=== PATIENT | female | born 1940 | race Caucasian/White ===

== ENCOUNTER 2017-10-24 10:20 | Outpatient (CLI) | payer MEDICARE, BC ==
[2017-10-24] MEDS ORDERED: IOPAMIDOL-300 50 ML VIAL ONE (10:39)
[2017-10-24] MEDS ORDERED: IOPAMIDOL-300 100 ML VIAL ONE (10:39)
[2017-10-24] MEDS: IOPAMIDOL-300 100 ML VIAL IVP ONE (11:57)
[2017-10-24] MEDS: IOPAMIDOL-300 50 ML VIAL PO ONE (11:57)
--- NOTE | 2017-10-24 13:38 | CT Report ---
Procedure Date: 10/24/2017 Accession Number: [id number] / [id number] Procedure: CT - Abdomen/Pelvis W/ CPT Code: FULL RESULT: EXAM: Chest W/, Abdomen/Pelvis W/ DATE: 10/24/2017 11:54 AM CLINICAL HISTORY: LYMPHOMA, UNSPECIFIED BODY REGION, NIGHT SWEATS COMPARISON: None. TECHNIQUE: Routine helical CT imaging was performed through from the thoracic inlet to the pubic symphysis. IV contrast: 100 mL Isovue 300 Reconstructions: Coronal and sagittal. Coronal 20 mm maximum intensity projections were also obtained for the chest. In accordance with CT protocol optimization, one or more of the following dose reduction techniques were utilized for this exam: automated exposure control, adjustment of mA and/or KV based on patient size, or use of iterative reconstructive technique. FINDINGS: CHEST: Lungs/Pleura: No nodules, bronchial thickening, consolidation, or edema. Pulmonary vasculature is normal. No pericardial or pleural effusion. No pneumothorax. Mediastinum: Normal. No adenopathy or masses. Note is made of coronary calcifications and calcifications of the great vessels. Bones: Unremarkable. ABDOMEN AND PELVIS: Liver: Normal. No masses. Gallbladder/Bile Ducts: Unremarkable. Spleen: 15.6 x 6.8 x 14.9 cm, marked splenomegaly. Subcentimeter splenic hypodensities, too small to characterize. Additional 1.7 x 1.4 x 0.8 cm hypodense splenic lesion, subtle ill-defined borders. Pancreas: Normal in size and shape, featureless with prominent duct. Adrenal Glands: Normal. Kidneys: Normal. No masses or hydronephrosis. Peritoneal Cavity/Bowel: Normal. No free fluid, free air or adenopathy. No masses or acute inflammatory process. The appendix is well visualized and normal. Pelvic Organs: Normal. The bladder and visualized pelvic organs are within normal limits. Vasculature: Abdominal atherosclerotic disease without aneurysm. Bones: No significant abnormality. Other: None. IMPRESSION: Splenomegaly with questionable splenic lesions, concerning in the clinical setting of suspected lymphoma. Relatively featureless pancreas without overt enlargement; a nonspecific finding that can be seen with autoimmune pancreatitis. No evidence of metastatic disease in the chest or pelvis. Atherosclerotic disease in the chest and abdomen. RADIA
== END 2017-10-24 10:21 | disposition home or self-care (01) ==
LOC: DI 10:20
PROVIDERS: ATTEND Family Medicine
DX: C85.90 Non-Hodgkin lymphoma, unspecified, unspecified site (principal); D73.89 Other diseases of spleen; R16.1 Splenomegaly, not elsewhere classified; I70.90 Unspecified atherosclerosis
CPT/HCPCS: 71260; 74177; Q9967

== ENCOUNTER 2017-12-30 08:28 | Day surgery (SDC) | payer MEDICARE, BC ==
[~2017-12-30 08:28] MED LIST: ceFAZolin 2 GM/50 ML 2 GM/50 ML BAG IV ONE
--- NOTE | 2017-12-30 08:56 | ANESTHESIA ---
Pre-Anesthesia VS, & Labs - Diagnosis mantle cell cancer - Procedure portacath placement Vital Signs: Temp Pulse Resp BP Pulse Ox 36.6 C 73 16 170/64 H 98 12/30/17 08:49 12/30/17 08:49 12/30/17 08:49 12/30/17 08:49 12/30/17 08:49 Height 5 ft 2 in Weight (kg) 63 kg - NPO >8 hours - Is Patient ?: Not Applicable - Lab Results Lab results reviewed: Yes Home Medications and Allergies Home Medications: Ambulatory Orders Medication Instructions Recorded Confirmed Loratadine [Claritin] 10 mg PO DAILY 09/05/15 12/29/17 Candesartan Cilexetil 16 mg PO DAILY PM 12/26/17 12/29/17 LORazepam [Lorazepam] 0.5 mg PO Q6H PRN 12/26/17 12/29/17 Lidocaine/Prilocain 2.5% Cream 30 gm TOP 1-2XD PRN #1 tube 12/26/17 12/29/17 [Emla 2.5% Cream] Ondansetron [Ondansetron Odt] 8 mg PO Q8H PRN #30 tab.rapdis 12/26/17 12/29/17 Prochlorperazine Maleate 10 mg PO Q6H PRN #30 tablet 12/26/17 12/29/17 [Compazine] raNITIdine [Zantac] 2 tab PO DAILY 12/26/17 12/29/17 Allopurinol 200 mg PO DAILY 5 Days #10 tablet 12/29/17 12/29/17 Loratadine [Claritin] 10 mg PO DAILY 09/05/15 Candesartan Cilexetil 16 mg PO DAILY PM 12/26/17 LORazepam [Lorazepam] 0.5 mg PO Q6H PRN 12/26/17 raNITIdine [Zantac] 2 tab PO DAILY 12/26/17 Allergies/Adverse Reactions: Allergies Allergy/AdvReac Type Severity Reaction Status Date / Time amoxicillin Allergy Unknown Verified 12/29/17 13:24 ampicillin Allergy Hives Verified 12/29/17 10:44 atenolol Allergy Unknown Verified 12/29/17 13:24 atorvastatin [From Lipitor] Allergy Unknown Verified 12/29/17 13:24 benazepril Allergy Unknown Verified 12/29/17 13:24 calcitonin [From Miacalcin] Allergy Unknown Verified 12/29/17 13:24 felodipine Allergy Unknown Verified 12/29/17 13:24 hydrochlorothiazide Allergy Unknown Verified 12/29/17 13:24 pravastatin Allergy Unknown Verified 12/29/17 13:24 rosuvastatin [From Crestor] Allergy Unknown Verified 12/29/17 13:24 simvastatin Allergy Unknown Verified 12/29/17 13:24 Anes History & Medical History - Anesthetic History Anesthesia Complications: reports: No previous complications Family history of Anesthesia Complications: Denies Family history of Malignant Hyperthermia: Denies - Medical History Cardiovascular: reports: Hypertension, High cholesterol Pulmonary: reports: None Gastrointestinal: reports: GERD Urinary: reports: None Musculoskeletal: reports: Osteoarthritis Endocrine/Autoimmune: reports: None Skin: reports: None - Surgical History Eyes Ears Nose Throat (EENT): Cataracts, Tonsil/Adenoidectomy Gynecologic: Hysterectomy Exam General: Alert, Oriented x3, Cooperative, No acute distress Dental: Other (caps, bridge) Mouth Openin Fingerbreadth Neck Mobility: Reduced Mallampati classification: II Thyromental Distance: greater than 6 cm Respiratory: Lungs clear, Normal breath sounds, No respiratory distress, No accessory muscle use Cardiovascular: Normal S1, Other (murmur) Mental/Cognitive Status: Alert/Oriented X3, Normal for patient Cognitive Status: Within normal limits Plan Anesthesia Type: General, MAC Consent for Procedure(s) Verified and Reviewed: Yes Code Status: Attempt Resuscitation ASA classification: 3-Severe systemic disease (she has cancer) Is this case an emergency?: No
[2017-12-30] MEDS ORDERED: LACTATED RINGERS 1,000 ML IV ONE ×2 (09:11→11:23)
[2017-12-30] MEDS ORDERED: BUPIVACAINE 0.5% PF 30 ML VIAL ONE (09:16)
[2017-12-30] MEDS ORDERED: PROPOFOL 200 MG/20 ML VIAL IVP ONE (11:00)
[2017-12-30] MEDS ORDERED: fentaNYL 100 MCG/2 ML VIAL IVP ONE (11:00)
[2017-12-30] MEDS ORDERED: MIDAZOLAM 2 MG/2 ML VIAL IVP ONE (11:00)
[2017-12-30] MEDS ORDERED: ONDANSETRON 4 MG/2 ML VIAL IVP ONE (11:00)
[2017-12-30] MEDS ORDERED: KETOROLAC 30 MG/ML VIAL IVP ONE (11:00)
[2017-12-30] MEDS ORDERED: LIDOCAINE-MPF 2% 5 ML VIAL IM ONE (11:00)
[2017-12-30] MEDS ORDERED: ePHEDrine 50 MG/ML AMP IVP ONE (11:00)
[2017-12-30] MEDS ORDERED: BUPIVACAINE 0.5% PF 30 ML VIAL SUBQ ONE ×2 (11:02)
[2017-12-30] MEDS ORDERED: HYDROcod/ACETAM 5/325 MG TABLET PO PRN (11:37)
[2017-12-30] MEDS ORDERED: ONDANSETRON 4 MG/2 ML VIAL IVP PRN (11:37)
[2017-12-30] MEDS ORDERED: HYDROmorphone 0.5 MG/0.5 ML SYRINGE IVP PRN (11:37)
--- NOTE | 2017-12-30 11:37 | OPERATIVE REPORT ---
Operative Report - General Procedure Date: 12/30/17 Planned Procedure: Port-A-Cath placement Pre-Op Diagnosis: Mantle cell lymphoma Procedure Performed: Left subclavian Port-A-Cath placement Post Op Diagnosis: Same - Procedure Note Primary Surgeon: Spenser Sung MD Anesthesia Provider: Herbie Joya CRNA Anesthesia Technique: General LMA, Local (10 mL of half percent Marcaine) IV Fluids (mL): 600 Estimated Blood Loss (mL): 5 Complications: None. - Other Other Information/Narrative: OPERATIVE DESCRIPTION/REPORT: After verbal and written informed consent was obtained detailing the risks of infection, bleeding requiring transfusion with its risks, nerve injury, and , and after I met with the patient confirming the surgery and the site of the surgery, the patient was brought to the operative suite and placed supine on the operating table. Great care was taken to avoid pressure points to prevent pressure necrosis or nerve injury. Monitoring devices were applied along with TEDs and pneumatic compressive stockings (to prevent DVT). The patient received preoperative antibiotics for surgical prophylaxis. Herbie Joya CRNA sedated and anesthetized the patient for the entire procedure. The patient was prepped and draped in the usual sterile manner. A "time in" then confirmed that the patient was identified with 3 identifiers (name, date and medical record number), the history and physical was in the chart, the signed consent confirming the procedure was in the chart, the patient was in the correct position, the aforementioned prophylactic measures were in place or given, we had the correct personnel and equipment to complete the procedure and that anesthesia, surgery and nursing were given an opportunity to express any concerns. With the agreement of everyone in the room, we proceeded with the operation. After the subclavian region was anesthetized using % marcaine and the patient placed in Trendelenberg position, an [employer] Smartport kit (Catalog #[id number], Lot #[id number]) was opened. The finder needle was inserted into the subclavian vein taking great care to place it just under the clavicle in order to minimize the risk of pneumothorax. When good venous blood return was obtained, the wire was placed through the needle and into the vein without difficulty. Cardiac irritability confirmed that the catheter was correctly going down towards the heart. Below and lateral to the needle insertion site, the area was anesthetized again using % marcaine and a transverse incision was made just large enough to accommodate the port. This incision was taken down to the fascia using sharp dissection and the area for the port was created using blunt downward dissection. Meticulous hemostasis was obtained using Bovie electrocautery. A knife was inserted along the wire to widen the insertion site and this was further dilated using a Esperanza. The port was flushed with heparinized saline and placed in the pouch and the catheter was then passed to t he needle opening using the passer. The catheter was then measured against the patients anterior chest and cut so that the tip would lie 2 cm below the manubrial-sternal junction. The port was secured to the fascia using a 3-0 Prolene on the side of the opening of the port. The catheter was then wiped and wrapped with a heparinized soaked 4x4. The dilator and sheath were then carefully inserted over the wire and the dilator and wire withdrawn. The catheter was then inserted into the sheath and the sheath was broken away from the catheter leaving the catheter in place in the vein. An X-ray confirmed placement of the catheter tip in the right atrium/supracardiac vena cava without pneumothorax. Using a Hueber needle the port was accessed and good blood return as well as easy flush was noted. The subcutaneous tissue was approximated using 3-0 Vicryl and the skin incisions were approximated with 4-0 Monocryl in a subcuticular fashion. The skin prep was washed off and prepped with benzoin. Steristrips were applied. At this point a time out was performed that confirmed that all the counts were correct, the procedure that was performed, the blood loss, the IV fluids administered, and the patients condition. A dressing was placed on the wound. Having tolerated the procedure well, the patient was taken to short stay in good and stable condition. The patient was instructed that the Portacath could be used immediately. Due to the quality of the chest x-ray I wish to get an upright chest x-ray in recovery. [employer] disclaimer: This document was created in part using voice recognition technology. Because of the inherent limitations of the system ([employer]'s [employer] user manual states that the licensee understands that speech recognition is a statistical process and that recognition errors are inherent in the process), occasional same sounding word substitutions and grammatical errors do occur and persist despite proofreading. Please read this document for context.
[2017-12-30 12:22] VITALS: BP 147/56
--- NOTE | 2017-12-30 12:30 | XRAY Report ---
Reason: LSCV PortaCath placement - better CXR than operati Procedure Date: 12/30/2017 Accession Number: [id number] / [id number] Procedure: XR - Chest for Line Placement CPT Code: FULL RESULT: EXAM: CHEST RADIOGRAPHY EXAM DATE: 12/30/2017 11:59 AM. CLINICAL HISTORY: Line placement. COMPARISON: Chest 1 view 12/30/2017 11:10 AM. TECHNIQUE: 1 view. FINDINGS: Again seen is a left chest port with subclavian vein approach. Positioning is now altered and the tip of the catheter now terminates in the region of the juncture of the brachiocephalic vein and SVC. There is a sharp angulation of central venous catheter tubing at the level of the clavicle. There is no pleural effusion, pneumothorax or lobar consolidation. The cardiomediastinal silhouette is unremarkable. IMPRESSION: Chest port position as described. RADIA
--- NOTE | 2017-12-30 12:40 | XRAY Report ---
Reason: PORT PLACEMENT Procedure Date: 12/30/2017 Accession Number: [id number] / [id number] Procedure: XR - Chest 1 View X-Ray CPT Code: 01376 FULL RESULT: EXAM: CHEST RADIOGRAPHY EXAM DATE: 12/30/2017 11:10 AM. CLINICAL HISTORY: Port placement. COMPARISON: XR CHEST 1 VIEWS 05/02/2009 7:34 AM. TECHNIQUE: 1 view. FINDINGS: Single AP portable chest radiograph obtained intraoperatively demonstrates a left subclavian vein approach central venous catheter with the distal tip in the upper atrium/superior cavoatrial junction. Please note that the button portion of the port is not fully included in the image. Lung volumes are generally low and a portion of the left hemithorax is excluded from the radiograph. Crowded lung markings and apparent enlargement of the cardiomediastinal silhouette is felt to be due to technique. No sizable pneumothorax or pleural effusion. IMPRESSION: Left chest port with tip in the region of the superior cavoatrial junction as described. RADIA
== END 2017-12-30 08:29 | disposition home or self-care (01) ==
LOC: SDS 08:28
PROVIDERS: ATTEND Surgery
PROC: 02H633Z Insertion of Infusion Device into Right Atrium, Percutaneous Approach (ICD-10-PCS; 2017-12-30)
PROC: 0JH63WZ Insertion of Totally Implantable Vascular Access Device into Chest Subcutaneous Tissue and Fascia, Percutaneous Approach (ICD-10-PCS; principal; 2017-12-30 09:45)
DX: C83.10 Mantle cell lymphoma, unspecified site (principal); I10 Essential (primary) hypertension; E78.5 Hyperlipidemia, unspecified; G47.30 Sleep apnea, unspecified; Z87.891 Personal history of nicotine dependence
CPT/HCPCS: 36561; 71045; C1788; J0690; J7120

== ENCOUNTER 2018-01-15 10:57 | Outpatient (CLI) | payer MEDICARE, BC ==
--- NOTE | 2018-01-15 14:53 | XRAY Report ---
Reason: PRTACATH ALL OF A SUDDEN NOT WORKING Procedure Date: 01/15/2018 Accession Number: [id number] / [id number] Procedure: XR - Chest 2 View X-Ray CPT Code: 57166 FULL RESULT: EXAM: CHEST RADIOGRAPHY EXAM DATE: 01/15/2018 11:47 AM. CLINICAL HISTORY: PRTACATH ALL OF A SUDDEN NOT WORKING. COMPARISON: CHEST FOR LINE PLACEMENT 12/30/2017 11:47 AM CHEST W/ 10/24/2017 11:47 AM. TECHNIQUE: 2 views. FINDINGS: The left subclavian approach central venous catheter tip is malpositioned. The catheter tip terminates within the anterior mediastinum. Possibilities include but are not limited to a branch vessel of either internal mammary vein, less likely abnormal pulmonary venous drainage towards the brachiocephalic vein or extravascular positioning. The lungs are otherwise normal. Cardia mediastinal silhouette is otherwise within normal limits. No sizable pleural effusion or pneumothorax. IMPRESSION: Malpositioned central venous catheter. Recommendation: Port repair. RADIA The above findings of malpositioned catheter tip were discussed with Spenser Sung by Dr. Joel Gastelum at 14:51 hrs on 01/15/18.
== END 2018-01-15 10:58 | disposition home or self-care (01) ==
LOC: DI 10:57
PROVIDERS: ATTEND Surgery
DX: Z45.2 Encounter for adjustment and management of vascular access device (principal); T82.524A Displacement of infusion catheter, initial encounter
CPT/HCPCS: 71046

== ENCOUNTER 2018-01-16 08:42 | Day surgery (SDC) | payer MEDICARE, BC ==
[2018-01-16] MEDS ORDERED: ceFAZolin 2 GM/50 ML 2 GM/50 ML BAG IV ONE (08:51)
[2018-01-16] MEDS ORDERED: LACTATED RINGERS 1,000 ML IV ONE ×2 (09:35→13:24)
--- NOTE | 2018-01-16 09:44 | ANESTHESIA ---
Pre-Anesthesia VS, & Labs - Diagnosis mantel cell lymphoma - Procedure portacath replacement Vital Signs: Temp Pulse Resp BP Pulse Ox 36.3 C L 80 14 162/83 H 98 01/16/18 09:03 01/16/18 09:03 01/16/18 09:03 01/16/18 09:03 01/16/18 09:03 Height 5 ft 2 in Weight (kg) 63 kg - NPO >8 hours - Is Patient ?: Not Applicable - Lab Results Lab results reviewed: Yes Home Medications and Allergies Loratadine [Claritin] 10 mg PO DAILY 09/05/15 Candesartan Cilexetil 16 mg PO DAILY PM 12/26/17 LORazepam [Lorazepam] 0.5 mg PO Q6H PRN 12/26/17 raNITIdine [Zantac] 2 tab PO DAILY 12/26/17 Allergies/Adverse Reactions: Allergies Allergy/AdvReac Type Severity Reaction Status Date / Time amoxicillin Allergy Hives Verified 01/16/18 09:37 ampicillin Allergy Hives Verified 01/16/18 09:37 atenolol Allergy Hives Verified 01/16/18 09:37 atorvastatin [From Lipitor] Allergy Hives Verified 01/16/18 09:37 benazepril Allergy Hives Verified 01/16/18 09:37 calcitonin [From Miacalcin] Allergy Hives Verified 01/16/18 09:37 felodipine Allergy Hives Verified 01/16/18 09:37 hydrochlorothiazide Allergy Hives Verified 01/16/18 09:37 pravastatin Allergy Hives Verified 01/16/18 09:37 rosuvastatin [From Crestor] Allergy Hives Verified 01/16/18 09:37 simvastatin Allergy Hives Verified 01/16/18 09:37 Anes History & Medical History - Anesthetic History Anesthesia Complications: reports: No previous complications Family history of Anesthesia Complications: Denies - Medical History Cardiovascular: reports: Hypertension, High cholesterol Pulmonary: reports: None Gastrointestinal: reports: GERD Urinary: reports: None Neuro: reports: TIA Musculoskeletal: reports: Osteoarthritis Endocrine/Autoimmune: reports: None Skin: reports: None - Surgical History Eyes Ears Nose Throat (EENT): Tonsil/Adenoidectomy Gynecologic: Hysterectomy Exam General: Alert, Oriented x3, Cooperative, No acute distress Dental: Other (bridge) Mouth Openin Fingerbreadth Mallampati classification: I Thyromental Distance: greater than 6 cm Respiratory: Lungs clear, Normal breath sounds, No respiratory distress, No accessory muscle use Cardiovascular: Normal S1, Normal S2, Other (murmur) Mental/Cognitive Status: Alert/Oriented X3, Normal for patient Cognitive Status: Within normal limits Plan Anesthesia Type: MAC Consent for Procedure(s) Verified and Reviewed: Yes Code Status: Attempt Resuscitation ASA classification: 3-Severe systemic disease Is this case an emergency?: No
[2018-01-16] MEDS ORDERED: BUPIVACAINE 0.5% PF 30 ML VIAL ONE (10:20)
[2018-01-16] MEDS ORDERED: BUPIVACAINE 0.5% PF 30 ML VIAL INFIL ONE ×2 (13:19)
[2018-01-16] MEDS ORDERED: PROPOFOL 200 MG/20 ML VIAL IVP ONE (14:16)
[2018-01-16] MEDS ORDERED: fentaNYL 100 MCG/2 ML VIAL IVP ONE (14:16)
--- NOTE | 2018-01-16 14:38 | XRAY Report ---
Reason: post portacath placement Procedure Date: 01/16/2018 Accession Number: [id number] / [id number] Procedure: XR - Chest 1 View X-Ray CPT Code: 86785 FULL RESULT: EXAM: CHEST RADIOGRAPHY EXAM DATE: 01/16/2018 02:22 PM. CLINICAL HISTORY: Post Port-A-Cath placement. COMPARISON: CHEST 2 VIEW 01/15/2018 11:41 AM. TECHNIQUE: 1 view. FINDINGS: Interval left subclavian approach port replacement with the tip of the new catheter projecting over the region of the right cavoatrial junction on the frontal view. Apparent change in appearance of the mediastinum in the region of the aortic knob felt to be due to differences in positioning. Calcifications of the aortic arch are unchanged. Lungs are clear with no sizable pleural effusion or pneumothorax. IMPRESSION: Interval port repair with the distal tip of the catheter projecting over the cavoatrial junction region on the frontal view. RADIA
[2018-01-16] MEDS ORDERED: ONDANSETRON 4 MG/2 ML VIAL IVP PRN (14:44)
[2018-01-16] MEDS ORDERED: HYDROcod/ACETAM 5/325 MG TABLET PO PRN (14:44)
[2018-01-16] MEDS ORDERED: HYDROmorphone 0.5 MG/0.5 ML SYRINGE IVP PRN (14:44)
--- NOTE | 2018-01-16 14:49 | OPERATIVE REPORT ---
Operative Report - General Procedure Date: 01/16/18 Planned Procedure: Replacement Port-A-Cath Pre-Op Diagnosis: Port-A-Cath does not work Procedure Performed: Replacement Port-A-Cath placement in LEFT subclavian position (modifier 22) Post Op Diagnosis: Same - Procedure Note Primary Surgeon: Spenser Sung MD Anesthesia Provider: Spenser Ratliff MD Anesthesia Technique: Local (30 mL 1/2% marcaine), MAC IV Fluids (mL): 1,200 Estimated Blood Loss (mL): 100 Complications: None. - Other Other Information/Narrative: OPERATIVE DESCRIPTION/REPORT: After verbal and written informed consent was obtained detailing the risks of infection, bleeding requiring transfusion with its risks, nerve injury, and , and after I met with the patient confirming the surgery and the site of the surgery, the patient was brought to the operative suite and placed supine on the operating table. Great care was taken to avoid pressure points to prevent pressure necrosis or nerve injury. Monitoring devices were applied along with TEDs and pneumatic compressive stockings (to prevent DVT). The patient received preoperative antibiotics for surgical prophylaxis. Dr. Spenser Ratliff sedated and anesthetized the patient for the entire procedure. The patient was prepped and draped in the usual sterile manner. A "time in" then confirmed that the patient was identified with 3 identifiers (name, date and medical record number), the history and physical was in the chart, the signed consent confirming the procedure was in the chart, the patient was in the correct position, the aforementioned prophylactic measures were in place or given, we had the correct personnel and equipment to complete the procedure and that anesthesia, surgery and nursing were given an opportunity to express any concerns. With the agreement of everyone in the room, we proceeded with the operation. After a near area in the left subclavian region was anesthetized using half percent Marcaine and after anesthetizing the skin overlying the current Port-A-Cath, a transverse incision was made at the new Port-A-Cath site and a transverse incision was made tracing the incision overlying the current Port-A-Cath. The stitch holding the Port-A-Cath in place was cut and the Port-A-Cath was brought out through the reopened incision. The catheter was disconnected from the Port. The catheter was clamped so as not to lose blood. The port was removed from the incision, and a Esperazna was used to transfer the catheter from the old port site to the new port site. With the aid of fluoroscopy, I attempted to remove the catheter from its site where it was not working and reposition it either in the right atrium or in the supracardiac vena cava. Despite having fluoroscopy there I was unable to accomplish this. I placed a wire through the catheter in an effort to stiffen it and guide it. With somewhere in place I had somewhat better control over the catheter but the catheter itself would not transition down towards the right atrium despite numerous attempts. I attempted to pull the catheter back and simply placed the wire in the proper position but even this was unsuccessful. In looking at the fluoroscopic pictures, and employing my our radiologist's expertise, it appeared to me that I was accessing the azygos vein numerous times. After multiple failed attempts, I packed both wounds on the left-hand side with saline soaked gauze and attempted to access the right subclavian vein. Numerous attempts resulted in several arterial sticks and several venous sticks but none of them would allow passage of the wire. It was at this time that it was noted that the patient's left hand had come up up underneath the drapes but not onto our sterile field but in doing so it had altered the anatomy. As such, I decided to go back to the left side and attempt placement again. This time with the left hand pulled down I was able to access the vein with a finder needle. When good venous blood return was obtained, the wire was placed through the needle and into the vein without difficulty. Fluoroscopy and cardiac irritability confirmed that the catheter was correctly going down towards the heart. I intentionally placed the wire into the inferior vena cava to ensure that we would not have a repeat of the previous placement of the catheter. A knife was inserted along the wire to widen the insertion site and this was further dilated using a Esperanza. The port was flushed with heparinized saline and placed in the pouch and the catheter was then passed to the needle opening using the passer. The catheter was then measured to be 2 cm longer than the previous catheter. The port was secured to the fascia using a 3-0 Prolene on the side of the opening of the port. The catheter was then wiped and wrapped with a heparinized soaked 4x4. The dilator and sheath were then carefully inserted over the wire and the dilator and wire withdrawn. The catheter was then inserted into the sheath and the sheath was broken away from the catheter leaving the catheter in place in the vein. Despite placing the wire deeper and cutting the catheter longer, fluoroscopy confirmed placement of the catheter tip in azygos vein again. I again disconnected the catheter from the Port-A-Cath and placed a wire through the catheter and this time under fluoroscopic guidance was able to place the tip of the catheter in the right atrium. I carefully withdrew the wire and confirmed that the catheter remained in the right atrium. I connected the catheter to the Port-A-Cath. Using a Hueber needle the port was accessed and good blood return as well as easy flush was noted. The subcutaneous tissues at both the old and new port sites was approximated using 3-0 Vicryl and the skin incisions were approximated with 4-0 Monocryl in a subcuticular fashion. The skin prep was washed off and prepped with benzoin. Steristrips were applied. At this point a time out was performed that confirmed that all the counts were correct, the procedure that was performed, the blood loss, the IV fluids administered, and the patients condition. A dressing was placed on the wound. Having tolerated the procedure well, the patient was taken to short stay in good and stable condition. Chest x-ray obtained in recovery revealed the catheter to still be in good placement without pneumothorax. The patient was instructed that the Portacath could be used immediately. The length of time required to perform this operation was for in excess of the time that is normally required. The equipment required as well as the request for radiographic intraoperative radiographic opinion mandates that this procedure be appended with a modifier 22. Dragon disclaimer: This document was created in part using voice recognition technology. Because of the inherent limitations of the system ([employer] user manual states that the licensee understands that speech recognition is a statistical process and that recognition errors are inherent in the process), occasional same sounding word substitutions and grammatical errors do occur and persist despite proofreading. Please read this document for context. DRAFT
[2018-01-16] MEDS ORDERED: HYDROcod/ACETAM 5/325 MG TABLET ONE (15:02)
[2018-01-16 15:47] VITALS: BP 139/67
--- NOTE | 2018-01-16 16:21 | XRAY Report ---
Reason: INTRAOPERATIVE OR 2 PORT PLACEMENT Procedure Date: 01/16/2018 Accession Number: [id number] / [id number] Procedure: FL - OR Port-A-Cath CPT Code: FULL RESULT: EXAM: INTRAOPERATIVE FLUOROSCOPY GUIDANCE FOR PORT PLACEMENT. EXAM DATE: 01/16/2018 02:01 PM CLINICAL HISTORY: Intraoperative OR 2- port placement. COMPARISON: None. TECHNIQUE: Intraprocedural fluoroscopy images were captured. Views FINDINGS: 8 images are submitted for review. The radiologist was consulted intraprocedurally. The 8 images document sequential repositioning of endovascular wires/catheters from left and right subclavian approach within the presumed venous system. Earlier images document left subclavian approach with the wire and catheter likely in the azygous system. Images from the right subclavian approach document intraventricular position of the wire. IMPRESSION: Intraprocedural images as described above. Real-time interpretation in direct communication with the performing surgeon was rendered at the time of image capture. RADIA
== END 2018-01-16 08:43 | disposition home or self-care (01) ==
LOC: SDS 08:42
PROVIDERS: ATTEND Surgery
PROC: 0JH63XZ Insertion of Tunneled Vascular Access Device into Chest Subcutaneous Tissue and Fascia, Percutaneous Approach (ICD-10-PCS; 2018-01-16)
PROC: 05PY33Z Removal of Infusion Device from Upper Vein, Percutaneous Approach (ICD-10-PCS; 2018-01-16)
PROC: 02H633Z Insertion of Infusion Device into Right Atrium, Percutaneous Approach (ICD-10-PCS; 2018-01-16)
PROC: 0JPT3XZ Removal of Tunneled Vascular Access Device from Trunk Subcutaneous Tissue and Fascia, Percutaneous Approach (ICD-10-PCS; principal; 2018-01-16 10:15)
DX: T82.524A Displacement of infusion catheter, initial encounter (principal); C83.10 Mantle cell lymphoma, unspecified site; G47.30 Sleep apnea, unspecified; I10 Essential (primary) hypertension; Z87.891 Personal history of nicotine dependence
CPT/HCPCS: 36561; 36590; 71045; A9270; C1788; J0690; J7120

== ENCOUNTER 2018-01-22 11:15 | Outpatient (CLI) | payer MEDICARE, BC ==
--- NOTE | 2018-01-22 14:47 | XRAY Report ---
Reason: SHORTNESS OF BREATH Procedure Date: 01/22/2018 Accession Number: [id number] / [id number] Procedure: XR - Chest 2 View X-Ray CPT Code: 91291 FULL RESULT: EXAM: CHEST RADIOGRAPHY EXAM DATE: 01/22/2018 11:25 AM. CLINICAL HISTORY: SHORTNESS OF BREATH. COMPARISON: 01/16/2018 TECHNIQUE: 2 views. FINDINGS: Lungs/Pleura: No focal opacities evident. No pleural effusion. No pneumothorax. Normal volumes. Mediastinum: Heart and mediastinal contours are unremarkable. Vascular calcification. Other: Left Port-A-Cath stable position IMPRESSION: No acute findings 2-view chest radiography. RADIA
== END 2018-01-22 11:16 | disposition home or self-care (01) ==
LOC: DI 11:15
PROVIDERS: ATTEND Surgery
DX: R06.02 Shortness of breath (principal)
CPT/HCPCS: 71046

== ENCOUNTER 2020-10-18 12:27 | Outpatient (CLI) | payer MEDICARE, BC ==
[2020-10-18] MEDS ORDERED: IOVERSOL 320 100 ML VIAL IVP ONE (12:54)
[2020-10-18] MEDS ORDERED: IOVERSOL 320 50 ML VIAL ONE (12:54)
[2020-10-18] MEDS ORDERED: GADOBUTROL 10 MMOL/10 ML VIAL ONE (14:12)
--- NOTE | 2020-10-18 15:26 | MRI Report ---
PROCEDURE: Brain W/WO INDICATIONS: LYMPHOMA, FORGETFULNESS CONTRAST: IV CONTRAST: Gadavist ml: 6.8 TECHNIQUE: Noncontrast axial T1 spin echo, axial T2 fast spin echo, sagittal and axial FLAIR, coronal T2 fast sp in echo, axial gradient echo, axial diffusion and ADC through the brain. After the administration of contrast, axial and coronal T1 spin echo with fat saturation through the brain. COMPARISON: Report only from an MRI dated 05/02/2009 FINDINGS: Image quality: Excellent. CSF spaces: Basal cisterns are patent. No extra-axial fluid collections. Ventricles are normal in size and shape. Brain: No midline shift. No intracranial bleeds or masses. No abnormal intracranial enhancement. There is cerebral volume loss for age. There is periventricular white matter chronic small vessel is chemic change. The brainstem appears normal. Diffusion-weighted images demonstrate no acute ischemi c insults. No chronic ischemic insults. Normal intravascular flow voids are present. Skull and face: Calvarial marrow is normal in signal. Orbits appear normal. Incidental note is ma de of bilateral lens replacements. Sinuses: Sinuses and mastoids appear clear. IMPRESSION: No masses or abnormal enhancement can be seen. No findings of acute or subacute infarction are seen. Age-appropriate brain parenchymal volume loss and chronic small vessel ischemic change can be seen. Reviewed by: Jeremiah Freire MD on 10/18/2020 2:25 PM JEANNE Approved by: Jeremiah Freire MD on 10/18/2020 2:25 PM JEANNE Station ID: [id number]
[2020-10-18] MEDS: GADOBUTROL 10 MMOL/10 ML VIAL IVP ONE (17:40)
== END 2020-10-18 12:28 | disposition home or self-care (01) ==
LOC: DI 12:27
PROVIDERS: ATTEND Internal Medicine Hematology & Oncology
DX: C85.90 Non-Hodgkin lymphoma, unspecified, unspecified site (principal); R41.89 Other symptoms and signs involving cognitive functions and awareness

== ENCOUNTER 2020-10-18 12:29 | Outpatient (CLI) | payer MEDICARE, BC ==
[2020-10-18] MEDS ORDERED: IOVERSOL 320 50 ML VIAL PO ONE (15:04)
[2020-10-18] MEDS ORDERED: IOVERSOL 320 100 ML VIAL IVP ONE (15:04)
--- NOTE | 2020-10-18 15:39 | CT Report ---
PROCEDURE: Abdomen/Pelvis W INDICATIONS: LYMPHOMA CONTRAST: IV CONTRAST: Optiray 320 ml: 100 PO CONTRAST: Optiray 320 ml50 TECHNIQUE: After the administration of oral and intravenous contrast, 5 mm thick sections acquired from the diap hragms to the symphysis. 5 mm thick coronal and sagittal reformats were acquired. For radiation dos e reduction, the following was used: automated exposure control, adjustment of mA and/or kV accordin g to patient size. COMPARISON: 10/25/2019. FINDINGS: Image quality: Excellent. ABDOMEN: Lung bases: Lung bases are clear. Heart size is normal. Coronary artery calcifications. Solid organs: Liver is unremarkable in size and enhancement. Spleen remains normal in size. Interesti ngly, a very small low density lesion in the periphery of the spleen near the diaphragm on the previo us study has resolved. Gallbladder is unremarkable Biliary system is non dilated. Pancreas enhances normally. No adrenal nodules. Kidneys demonstrate normal size and enhancement, without hydronephro sis. Peritoneum and bowel: Bowel loops demonstrate normal wall thickness and caliber. Sigmoid diverticulo sis without evidence of diverticulitis. No free air or fluid or abscess cavity. Nodes and vessels: N o retroperitoneal or mesenteric adenopathy by size criteria. Aorta and inferior vena cava are normal in size. Abdominal aortic calcifications. Miscellaneous: No ventral hernias. PELVIS: Genitourinary: Bladder wall thickness is normal. Miscellaneous: No inguinal hernias or adenopathy. Uterus is surgically absent. Bones: No suspicious bony lesions. No vertebral body compression fractures. Lumbar degenerative ch robert. Degenerative anterolisthesis of L4 on L5. Severe canal stenosis at that level. IMPRESSION: 1. No evidence of residual or recurrent lymphoma in the abdomen and pelvis. 2. Incidental note is made of the presence of severe lumbar canal stenosis at L4-L5. Reviewed by: Malcom Moncada MD on 10/18/2020 3:38 PM PDT Approved by: Malcom Moncada MD on 10/18/2020 3:38 PM PDT Station ID: [id number]
--- NOTE | 2020-10-18 16:49 | CT Report ---
PROCEDURE: CHEST W INDICATIONS: LYMPHOMA CONTRAST: IV CONTRAST: Optiray 320 ml: 100 PO CONTRAST: Optiray 320 ml50 TECHNIQUE: After the administration of intravenous contrast, images were acquired from the pulmonary apices to t he posterior costophrenic angles. Multiplanar MIP reformats were acquired. For radiation dose reduc tion, the following was used: automated exposure control, adjustment of mA and/or kV according to pa tient size. COMPARISON: Same day CT abdomen and pelvis. CT chest 10/25/2019.. FINDINGS: Image quality: Excellent. Lungs and pleura: Mild dependent atelectasis or scarring similar the prior exam. No significant acute airspace opacity. No pleural effusions or pneumothorax. Central and peripheral airways are patent a nd normal in caliber. Mediastinum: Heart size is prominent. Coronary artery calcifications. No pericardial effusion. No mediastinal or hilar adenopathy by size criteria. Thoracic aorta and central pulmonary arteries are normal in size. Esophagus is normal in caliber. Small hiatal hernia. Bones and chest wall: No suspicious bony lesions. No vertebral body compression fractures. No axil mohan or supraclavicular adenopathy by size criteria. The thyroid is normal in size and there are no incidental findings. Abdomen: Visualized upper abdominal solid organs appear normal. Upper abdominal bowel loops are nor mal in caliber. IMPRESSION: No recurrent lymphoma identified in the chest. Reviewed by: Cesar Durán MD on 10/18/2020 4:48 PM PDT Approved by: Cesar Durán MD on 10/18/2020 4:48 PM PDT Station ID: [id number]
== END 2020-10-18 12:30 | disposition home or self-care (01) ==
LOC: LAB 12:29
PROVIDERS: ATTEND Internal Medicine Hematology & Oncology
DX: C83.10 Mantle cell lymphoma, unspecified site (principal); C83.19 Mantle cell lymphoma, extranodal and solid organ sites; C85.90 Non-Hodgkin lymphoma, unspecified, unspecified site; E78.5 Hyperlipidemia, unspecified

== ENCOUNTER 2021-09-06 14:43 | Outpatient (CLI) | payer MEDICARE, BC | END 2021-09-06 14:44 | disposition home or self-care (01) | LOC: DI 14:43 | PROVIDERS: ATTEND Internal Medicine Cardiovascular Disease | DX: I35.0 Nonrheumatic aortic (valve) stenosis (principal); I51.7 Cardiomegaly | CPT/HCPCS: 93306 ==

== ENCOUNTER 2023-04-16 09:44 | Outpatient (CLI) | payer MEDICARE, OTHER ==
[2023-04-16 15:17] LABS: ABSOLUTE RETICS # AUTO 0.035 10^6/uL (0.020-0.110); BASOPHILS % (AUTO) 0.4 %; EOSINOPHILS # (AUTO) 0.1 10^3/uL (0.0-0.7); EOSINOPHILS % (AUTO) 1.6 %; HCT - HEMATOCRIT 39.1 % (37.0-47.0); HGB - HEMOGLOBIN 12.7 g/dL (12.0-16.0); LYMPHOCYTES % (AUTO) 19.6 %; MEAN CORPUSCULAR HEMOGLOBIN 28.4 pg (27.0-31.0); MEAN CORPUSCULAR HGB CONC 32.5 g/dL (32.0-36.0); MEAN CORPUSCULAR VOLUME 87.5 fL (81.0-99.0); MEAN PLATELET VOLUME 8.8 fL (7.9-10.8); MONOCYTES # (AUTO) 0.3 10^3/uL (0.0-1.0); MONOCYTES % (AUTO) 5.8 %; NEUTROPHILS # (AUTO) 3.6 10^3/uL (1.5-6.6); NEUTROPHILS % (AUTO) 72.4 %; PLT - PLATELET COUNT 236 10^3/uL (130-450); RED BLOOD COUNT 4.47 10^6/uL (4.20-5.40); RED CELL DISTRIBUTION WIDTH 11.9 % (12.0-15.0); RETICULOCYTE COUNT % (AUTO) 0.78 % (0.5-2.3)
[2023-04-16 16:08] LABS: ALBUMIN 4.1 g/dL (3.2-5.5); ALBUMIN/GLOBULIN RATIO 2.1 (1.0-2.2); ALKALINE PHOSPHATASE 47 IU/L (42-121); ALT ALANINE AMINOTRANSFERASE 12 IU/L (10-60); AMYLASE 35 U/L (28-100); AST ASPARTATE AMINOTRANSFERASE 18 IU/L (10-42); BILIRUBIN,TOTAL 0.9 mg/dL (0.2-1.0); BUN - BLOOD UREA NITROGEN 13 mg/dL (6-20); CALCIUM 8.9 mg/dL (8.5-10.3); CARBON DIOXIDE - CO2 26 mmol/L (21-32); CHLORIDE 105 mmol/L (101-111); CREATININE 0.5 mg/dL (0.6-1.3); CRP - C-REACTIVE PROTEIN < 0.5 mg/dL (<0.5); GFR - MDRD 118 (>89); GLUCOSE 100 mg/dL (74-104); LIPASE 12 U/L (11-82); POTASSIUM 3.9 mmol/L (3.5-4.5); SODIUM 138 mmol/L (135-145); TOTAL PROTEIN 6.1 g/dL (6.4-8.9)
== END 2023-04-16 09:45 | disposition home or self-care (01) ==
LOC: LAB.S 09:44
PROVIDERS: ATTEND Internal Medicine
DX: I10 Essential (primary) hypertension (principal); J32.0 Chronic maxillary sinusitis; Z98.818 Other dental procedure status; R93.3 Abnormal findings on diagnostic imaging of other parts of digestive tract; C85.17 Unspecified B-cell lymphoma, spleen; C83.10 Mantle cell lymphoma, unspecified site; R10.9 Unspecified abdominal pain
CPT/HCPCS: 36415; 80053; 82150; 83690; 85025; 85045; 86140

== ENCOUNTER 2023-05-03 08:36 | Outpatient (CLI) | payer MEDICARE ==
--- NOTE | 2023-05-03 13:55 | Ultrasound Report ---
PROCEDURE: Abdomen Complete INDICATIONS: SPLENOMEGEGALY TECHNIQUE: Real-time scanning was performed of the abdominal and retroperitoneal organs, with image documentatio n. COMPARISON: CT abdomen/pelvis 10/18/2020 FINDINGS: Liver: Liver is normal in size and homogeneous in echotexture. Hepatopetal flow seen in the main por paul vein. Gallbladder: A 5 mm polyp is seen in the gallbladder, which is our dedicated imaging follow-up based on size. No gallstones. No pericholecystic fluid or gallbladder wall thickening. Sonographic Schwartz s ign is negative. Biliary ducts: Intrahepatic bile ducts are non-dilated. Extrahepatic bile duct caliber measures 3 m m. Normal is 6-7 mm or less in diameter, or 10 mm or less post-cholecystectomy. Pancreas: Visualized portions of the pancreas are sonographically normal. Spleen: Spleen is normal in size and homogeneous in echotexture. Spleen measures 9.5 cm in maximum dimension. Kidneys: Kidneys are normal in size and echotexture. Right kidney measures 10.3 cm long; left kidne y measures 10.4 cm long. No hydronephrosis or nephrolithiasis. No solid masses. No complex renal cy stic lesions which require follow-up. Aorta: Visualized aorta is normal in caliber at less than 3 cm. Iliacs: Proximal common iliac arteries are normal in caliber at less than 2.5 cm. IVC: Intrahepatic inferior vena cava is patent. Miscellaneous: No free abdominal fluid. IMPRESSION: 1.Spleen is normal in size. No acute sonographic abnormality in the abdomen. 2.Incidental 5 mm gallbladder polyp, which does not require dedicated imaging follow-up based on size criteria. Reviewed by: Kirk Cordon MD on 05/03/2023 1:54 PM PST Approved by: Kirk Cordon MD on 05/03/2023 1:54 PM PST Station ID: [id number]
== END 2023-05-03 08:37 | disposition home or self-care (01) ==
LOC: DI 08:36
PROVIDERS: ATTEND Internal Medicine
DX: R16.1 Splenomegaly, not elsewhere classified (principal); C85.17 Unspecified B-cell lymphoma, spleen; C83.10 Mantle cell lymphoma, unspecified site; R10.9 Unspecified abdominal pain

== ENCOUNTER 2023-10-24 08:00 | Outpatient (CLI) | payer MEDICARE ==
--- NOTE | 2023-10-24 18:30 | XRAY Report ---
PROCEDURE: Shoulder 2+V LT INDICATIONS: LEFT SHOULDER PAIN TECHNIQUE: 3 views of the shoulder were acquired. COMPARISON: None. FINDINGS: Bones: No acute fractures or dislocations. No suspicious bony lesions. Visualized ribs appear inta ct. Moderate to severe joint space tearing in the glenohumeral joint. Humeral head is high riding w ith narrowing of the acromiohumeral interval. Moderate degenerative changes at the acromioclavicular joint. Soft tissues: No suspicious soft tissue calcifications. The visualized lungs are within normal limi ts. 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 2.Moderate acromioclavicular osteoarthrosis. 3.High riding humeral head is suspicious for underlying chronic rotator cuff tendinopathy. Reviewed by: Kirk Cordon MD on 10/24/2023 6:28 PM PDT Approved by: Kirk Cordon MD on 10/24/2023 6:28 PM PDT Station ID: [id number]
[2023-10-24 20:07] LABS: CK- CREATINE KINASE 90 IU/L (30-223); CRP - C-REACTIVE PROTEIN < 0.5 mg/dL (<0.5)
== END 2023-10-24 23:59 | disposition home or self-care (01) ==
LOC: DI.S 08:00
PROVIDERS: ATTEND Internal Medicine
DX: M19.011 Primary osteoarthritis, right shoulder (principal)
CPT/HCPCS: 36415; 82550; 85651; 86140